=== PATIENT | male | born 1945 | race Caucasian/White ===

== ENCOUNTER 2018-12-17 13:47 | Emergency (ER) | payer MEDICARE, BC ==
--- NOTE | 2018-12-17 14:06 | EDM.PDOC ---
ED HPI GENERAL MEDICAL PROBLEM - General Chief Complaint: Allergic Reaction Stated Complaint: BEE BIT HIM ON THE TONGUE Time Seen by Provider: 12/17/18 13:55 Source of Information: Reports: Patient History Limitations: Reports: No Limitations - History of Present Illness INITIAL COMMENTS - FREE TEXT/NARRATIVE: Was [place] [address] and was stung on tongue by a bee. He pulled the stinger out immediately and took 2 benadryl tablets. He has been stung before and he swelled up from it. He has noted some swelling but minimal. No difficulty breathing or swallowing. Voice has been normal. Does state that he has sme discomfort to the left side of tongue where stung. Onset: Today Location: Reports: Other (tongue) Severity: Mild Worsens with: Reports: None Treatments ROOM WORKER: Reports: Other (see below) (Benadryl) Tongue Pain Score (Numeric/FACES): 4 - Related Data Allergies Allergy/AdvReac Type Severity Reaction Status Date / Time bee venom protein (honey bee) Allergy Swelling Verified 12/17/18 14:00 Penicillins Allergy Swelling Verified 12/17/18 14:00 Home Meds: Home Meds Albuterol Sulfate [Albuterol Sulfate Hfa] 1 puff INH DAILY PRN 12/17/18 [History ] Budesonide/Formoterol Fumarate [Symbicort 80-4.5 Mcg Inhaler] 2 puff INH BID 06/06 [History] Simvastatin [Zocor] 40 mg PO DAILY 12/17/18 [History] Past Medical History Cardiovascular History: Reports: High Cholesterol, Hypertension Social & Family History - Living Situation & Occupation Living situation: Reports: , with Spouse Occupation: Employed ED ROS ALLERGIC REACTION - Review of Systems Review Of Systems: See Below Constitutional: Denies: Fever, Chills HEENT: Reports: Other (tongue pain) Respiratory: Denies: Shortness of Breath, Cough Cardiovascular: Reports: No Symptoms GI/Abdominal: Reports: No Symptoms Skin: Denies: Rash Free Text/Narrative/Comment: please see nurses documentation for past medical, surgical and social history. ED EXAM GENERAL NO PERIP PULSE - Physical Exam Exam: See Below General Appearance: Alert, WD/WN, No Apparent Distress. No: Anxious Throat/Mouth: Normal Inspection, Normal Lips, Normal Oropharynx, Normal Voice, No Airway Compromise, Other (minimal swelling noted to the left side of tongue.) Head: Atraumatic Neck: Normal Inspection, Supple Respiratory/Chest: No Respiratory Distress, Lungs Clear, Normal Breath Sounds. No: Wheezing Cardiovascular: Regular Rate, Rhythm Skin Exam: Warm, Dry, Intact. No: Rash Course - Vital Signs Last Recorded V/S: Last Vital Signs Temp 98.4 F 12/17/18 13:57 Pulse 74 12/17/18 13:57 Resp 16 12/17/18 13:57 BP 130/81 12/17/18 13:57 Pulse Ox Departure - Departure Time of Disposition: 14:08 Disposition: Home, Self-Care 01 Condition: Good Clinical Impression: Insect bite or sting - Discharge Information *PRESCRIPTION DRUG MONITORING PROGRAM REVIEWED*: Not Applicable *COPY OF PRESCRIPTION DRUG MONITORING REPORT IN PATIENT RAVINDER: Not Applicable Instructions: Anaphylactic Reaction, Adult Additional Instructions: use benadryl as needed for any swelling of tongue If any difficulty with swallowing or respiratory distress then would need to return to ER immediately. If stung in the future take the benadryl immediately. - Problem List & Annotations (1) Insect bite or sting SNOMED Code(s): 849437732, 636023232 Code(s): [id number] - Status: Acute Priority: High - Problem List Review Problem List Initiated/Reviewed/Updated: Yes
[2018-12-17] MEDS ORDERED: methylPREDNISolone Sodium Succinate 125 MG/2 ML SDV IVPUSH SCH (14:15)
== END 2018-12-17 14:20 | disposition home or self-care (01) ==
LOC: CC.ED 13:47
DX: T63.441A Toxic effect of venom of bees, accidental (unintentional), initial encounter (principal); E78.00 Pure hypercholesterolemia, unspecified; I10 Essential (primary) hypertension; Z88.0 Allergy status to penicillin; Z91.030 Bee allergy status; Z79.899 Other long term (current) drug therapy
CPT/HCPCS: 96372; 99282; 99283; J2930